=== PATIENT | male | born 1995 | race Caucasian/White ===

== ENCOUNTER 2020-11-14 14:45 | Emergency (ER) | payer BC, SELFPAY ==
[2020-11-14 14:54] VITALS: BP 140/81; PULSE 102; RESP 18; TEMP 37; O2SAT 99
--- NOTE | 2020-11-14 15:12 | ED.SKABFB ---
HPI - Skin/Abscess/Foreign Bdy General Chief complaint: Skin/Abscess/Foreign Body Stated complaint: RASH Time Seen by Provider: 11/14/20 15:10 Source: patient, RN notes reviewed and old records reviewed Mode of arrival: ambulatory Limitations: no limitations History of Present Illness HPI narrative: 25-year-old male who presents to [facility] with complaints of rash after canoe trip in [place]. Patient states he has had 7 to 8-day duration of rash which he thinks is poison [place] which is on his bilateral ankle areas, top of his right foot, on bilateral forearms, on his abdomen, around waistband and up sides of chest and is very pruritic with fluid filled vesicles noted Patient states that he has taken Benadryl orally for the itch and has been applying Calamine ointment to rash but it continues to spread. patient denies any difficulty with his breathing or any difficulty swallowing. SAO2 99% on room air. MD complaint: rash Onset (ago): day(s) (8) Location: chest, back, LUE, RUE, L foot and R foot Severity: moderate Quality: pruritic Context: other (canoe trip in [place]) Associated symptoms: other (pruritus) Treatments prior to arrival: Benadryl and other (calamine lotion) Related Data Allergies Allergy/AdvReac Type Severity Reaction Status Date / Time No Known Allergies Allergy Verified 10/16/15 14:58 Review of Systems Review of Systems: Narrative: CONSTITUTIONAL: Denies fever, chills, or sweats. EYES: Denies visual changes, redness, or discharge. ENT: Denies rhinorrhea, congestion, sore throat, or otalgia. CARDIOVASCULAR: Denies chest pain, palpitations, or edema. RESPIRATORY: Denies cough or dyspnea. GASTROINTESTINAL: Denies abdominal pain, nausea, vomiting, or diarrhea. GENITOURINARY: Denies dysuria or hematuria. SKIN: Positive fpr rash or itching to top of foot and toes on right foot, around bilateral ankles, bilateral arms, abdomen, sides or torso around waistband MUSCULOSKELETAL: Denies back pain, joint pain, or myalgia. NEUROLOGIC: Denies headache, numbness, or weakness. PSYCHIATRIC: Denies anxiety or depression. All systems reviewed & are unremarkable except as noted in HPI and below PMFSH Past Medical History Medical History (Updated 11/14/20 @ 18:43 by Paty Arnold NP) Injury of shoulder, left Surgical History Surgical History (Updated 11/14/20 @ 18:43 by Paty Arnold NP) No history of previous surgery Family History Family History (Updated 11/14/20 @ 18:47 by Paty Arnold NP) Grandparent Cerebrovascular accident Heart disease Cancer Hypertension Diabetes mellitus Social History Social History (Updated 11/14/20 @ 18:46 by Paty Arnold NP) Smoking status: Never smoker Alcohol intake: current Alcohol use details: social Substance use: current Substance use type: marijuana Living arrangements: with friend(s) Gender identity (if verbalized by the patient): Male Comments At time of signature, agree with nursing past medical, surgical, social and family history. There is no relevant family history pertinent to the presenting complaint Exam Narrative: Exam Narrative: GENERAL: Well-appearing, well-nourished, and in no acute distress. HEAD: Normocephalic, atraumatic. EYES: PERRLA and EOMI. ENT: Nares clear, no rhinorrhea or epistaxis. Mucous membranes moist. NECK: Supple.no lymphadenopathy CHEST: Clear to auscultation. No respiratory distress.SAO2 99% on room air HEART: Regular rate and rhythm. No murmur heard. Normal peripheral pulses. ABDOMEN: Soft, nontender, nondistended, normal active bowel sounds. EXTREMITIES: Normal range of motion. No edema. SKIN: Warm, dry, rash on top of right foot and toes, red vesicles noted along rash. Rash around bilateral ankles, waistband, abdomen, along torso sides, and bilateral arms; rash is pruritic. NEURO: No focal deficits. Alert and oriented x3. Course Vital Signs Vital signs: Vital Signs Temperature 37.
--- NOTE | 2020-11-14 15:31 | PC.NURSE ---
Depo medrol given at this time. I acknowledged med, scanned patient, scanned med and computer never went to a screen so i could chart site or save the entry. Med was given in left upper hip with out difficulty.
[2020-11-14] MEDS: methylPREDNISolone ACETATE 80 MG/ML VIAL IM (15:34)
== END 2020-11-14 15:53 | disposition home or self-care (01) ==
PROVIDERS: Emergency Provider Registered Nurse
DX: L23.7 Allergic contact dermatitis due to plants, except food (principal)
CPT/HCPCS: 96372; 99213; G0463; J1040